=== PATIENT | female | born 1980 | race Two or more races ===

== ENCOUNTER 2021-07-12 03:51 | Inpatient (IN) | payer MEDICAID, OTHER ==
[~2021-07-12] VITALS: Ht 167.6 cm; Wt 98.1 kg
[~2021-07-12 03:51] MED LIST: LEVO500T31 PO; TRAM50TA2
[2021-07-12 07:45] LABS: Basophils # (auto) 0.1 10 ^3/uL (0-0.2); Basophils % (auto) 0.4 % (0.0-2.0); Eosinophils # (auto) 0 10 ^3/uL (0-0.8); Eosinophils % (auto) 0.2 % (0.0-7.0); Hematocrit 37.1 % (36.0-46.0); Hemoglobin 12.2 g/dL (12.2-16.2); Lymphocytes # (auto) 1.1 10 ^3/uL (0.4-5.4); Lymphocytes % (auto) 8.8 % (10.0-50.0); Mean Corpuscular Hemoglobin 27.1 pg (28.0-32.0); Mean Corpuscular Hgb Conc. 32.9 g/dL (32.0-36.0); Mean Corpuscular Volume 82.5 fL (80.0-100.0); Monocytes # (auto) 0.6 10 ^3/uL (0-1.3); Neutrophils # (auto) 10.3 10 ^3/uL (1.6-8.6); Neutrophils % (auto) 85.6 % (37.0-80.0); Red Cell Distribution Width 14.5 % (11.8-14.3)
[2021-07-12 07:53] LABS: Urine Bacteria FEW /hpf (None Seen); Urine Blood Negative /uL (Negative); Urine Specific Gravity 1.006 (1.001-1.035); Urine WBC 1 /hpf (0 - 5)
[2021-07-12 08:07] LABS: Albumin 3.8 g/dL (3.4-5.0); Calcium 9.1 mg/dL (8.5-10.1); Potassium 4.3 mmol/L (3.5-5.1)
[2021-07-12 08:17] LABS: BUN/Creatinine Ratio 15.8; Bilirubin, Total 0.9 mg/dL (0.2-1.0); Total Protein 7.4 g/dL (6.4-8.2)
[2021-07-12] MEDS ORDERED: cefTRIAXone 1GM/50ML D5W 50 ML IV ONE (08:45)
[2021-07-12] MEDS ORDERED: SODIUM CHLORIDE 0.9% 1,000 ML IV ONE ×2 (08:45)
[2021-07-12] MEDS ORDERED: IOHEXOL 300 MG/ML 100ML BOTTLE IJ ONE (08:47)
[2021-07-12] MEDS: SODIUM CHLORIDE 0.9% 1,000 ML IV SCH ×3 (10:22→23:50)
[2021-07-12] MEDS ORDERED: PROMETHAZINE HCL 25 MG/ML 1ML IV PRN (10:30)
[2021-07-12] MEDS ORDERED: MORPHINE SULFATE INJECTION 2 MG/ML SYRG IV PRN (10:30)
[2021-07-12] MEDS ORDERED: NITROGLYCERIN 0.4 MG SL TAB SL PRN (10:30)
[2021-07-12] MEDS ORDERED: ACETAMINOPHEN 500 MG TAB PO PRN (10:30)
[2021-07-12] MEDS ORDERED: HYDROcodone-ACET 5/325MG TAB PO PRN (10:30)
[2021-07-12 13:00] VITALS: BP 123/86
[2021-07-12] MEDS: PIPERACILLIN-TAZOB 3.375GM 100 ML IV SCH ×2 (13:59→22:12)
[2021-07-12] MEDS ORDERED: METR500T14 PO (14:37)
[2021-07-12] MEDS ORDERED: OMEP20TA PO (14:37)
[2021-07-12] MEDS ORDERED: CLAR1TAB21 PO (14:37)
[2021-07-12 16:43] LABS: Partial Thromboplastin Time 26.2 sec (23.6-33.0)
[2021-07-12 17:00] VITALS: BP 110/71
[2021-07-12 22:00] VITALS: BP 98/54
[2021-07-13 05:00] VITALS: BP 98/49
[2021-07-13] MEDS: SODIUM CHLORIDE 0.9% 1,000 ML IV SCH ×3 (05:43→15:21)
[2021-07-13] MEDS: PIPERACILLIN-TAZOB 3.375GM 100 ML IV SCH ×3 (06:40→22:39)
[2021-07-13 06:44] LABS: Amylase 60 U/L (25-115); Lipase 169 U/L (73-393)
[2021-07-13 06:47] LABS: Potassium 4.3 mmol/L (3.5-5.1)
[2021-07-13 06:48] LABS: INR 0.99 (0.9-1.15); Partial Thromboplastin Time 27.2 sec (23.6-33.0)
[2021-07-13 07:00] LABS: Albumin 3.3 g/dL (3.4-5.0); BUN/Creatinine Ratio 12.3; Bilirubin, Total 0.8 mg/dL (0.2-1.0); Calcium 8.4 mg/dL (8.5-10.1); Total Protein 6.2 g/dL (6.4-8.2)
[2021-07-13 09:00] VITALS: BP 105/54
[2021-07-13 13:00] VITALS: BP 113/63
[2021-07-13] MEDS: FAMOTIDINE 20 MG TAB PO SCH (14:21)
[2021-07-13 16:47] VITALS: BP 104/75
[2021-07-13 22:00] VITALS: BP 99/68
[2021-07-14] MEDS: PIPERACILLIN-TAZOB 3.375GM 100 ML IV SCH ×3 (05:28→22:33)
[2021-07-14] MEDS: SODIUM CHLORIDE 0.9% 1,000 ML IV SCH ×2 (05:28→18:47)
[2021-07-14 05:30] VITALS: BP 102/60
[2021-07-14 06:36] LABS: Albumin 3.4 g/dL (3.4-5.0)
[2021-07-14 06:40] LABS: Bilirubin, Direct 0.2 mg/dL (0-0.2); Bilirubin, Total 0.9 mg/dL (0.2-1.0); Total Protein 6.3 g/dL (6.4-8.2)
[2021-07-14 08:00] VITALS: BP 115/80
[2021-07-14 08:15] VITALS: BP 128/71
[2021-07-14] MEDS: FAMOTIDINE 20 MG TAB PO SCH (09:58)
[2021-07-14 13:00] VITALS: BP 119/74
[2021-07-14 17:00] VITALS: BP 102/59
[2021-07-14 22:00] VITALS: BP 107/57
[2021-07-15 05:00] VITALS: BP 115/64
[2021-07-15 05:01] LABS: Basophils # (auto) 0.1 10 ^3/uL (0-0.2); Basophils % (auto) 0.9 % (0.0-2.0); Eosinophils # (auto) 0.3 10 ^3/uL (0-0.8); Eosinophils % (auto) 3.1 % (0.0-7.0); Hemoglobin 11.6 g/dL (12.2-16.2); Lymphocytes # (auto) 2.1 10 ^3/uL (0.4-5.4); Mean Corpuscular Hemoglobin 27.3 pg (28.0-32.0); Mean Corpuscular Hgb Conc. 33.2 g/dL (32.0-36.0); Mean Corpuscular Volume 82.3 fL (80.0-100.0); Monocytes # (auto) 0.6 10 ^3/uL (0-1.3); Monocytes % (auto) 6.9 % (0.0-12.0); Neutrophils % (auto) 66.1 % (37.0-80.0); Nucleated Red Blood Cells % 0.1 %; Red Blood Cells 4.25 10^6/uL (4.0-5.20); Red Cell Distribution Width 14.2 % (11.8-14.3)
[2021-07-15 05:14] LABS: INR 1.04 (0.9-1.15); Partial Thromboplastin Time 27.3 sec (23.6-33.0)
[2021-07-15 05:16] LABS: Albumin 3.2 g/dL (3.4-5.0); BUN/Creatinine Ratio 9.5; Calcium 8.8 mg/dL (8.5-10.1); Potassium 4.3 mmol/L (3.5-5.1)
[2021-07-15 05:25] LABS: Bilirubin, Total 0.8 mg/dL (0.2-1.0); Total Protein 6.2 g/dL (6.4-8.2)
[2021-07-15] MEDS: PIPERACILLIN-TAZOB 3.375GM 100 ML IV SCH ×2 (06:00→14:05)
[2021-07-15] MEDS ORDERED: ceFAZolin 1GM/50ML 100 ML IV ONE (07:00)
[2021-07-15] MEDS ORDERED: LIDOCAINE W/ EPINEPHRINE 1% 20ML VIAL ONE (07:19)
[2021-07-15] MEDS ORDERED: BUPIVACAINE W/ EPINEPH 0.25% INJ 50ML MDV ONE (07:19)
[2021-07-15] MEDS ORDERED: ROCURONIUM 10MG/ML 10ML VIAL IV ONE (07:55)
[2021-07-15] MEDS ORDERED: fentaNYL CITRATE 5 ML ONE (07:55)
[2021-07-15] MEDS ORDERED: MIDAZOLAM HCL 2MG/2ML 2ml VIAL (1mg/ml) ONE (07:55)
[2021-07-15] MEDS ORDERED: ONDANSETRON HCL 4 MG/2 ML VIAL ONE (08:12)
[2021-07-15] MEDS ORDERED: PROPOFOL 10 MG/ML 20 ML IV ONE (08:12)
[2021-07-15] MEDS ORDERED: LIDOCAINE 2% (LOCAL ANESTH.) PF 5ml SDV ONE (08:12)
[2021-07-15 08:15] VITALS: BP 113/71
[2021-07-15] MEDS ORDERED: ONDANSETRON HCL 4 MG/2 ML VIAL IV PRN (09:00)
[2021-07-15] MEDS ORDERED: HYDROmorphone HCL 2 MG/ML VL IV PRN ×2 (09:00)
[2021-07-15] MEDS ORDERED: GLYCOPYRROLATE 0.2 MG/ML 1ML VIAL ONE (09:15)
[2021-07-15] MEDS ORDERED: NEOSTIGMINE 1 MG/ML INJ (10mg/10ML VIAL) ONE (09:15)
[2021-07-15] MEDS ORDERED: NALOXONE HCL 0.4 MG/ML VIAL ONE (09:25)
[2021-07-15 10:30] VITALS: BP 113/71
[2021-07-15] MEDS: SODIUM CHLORIDE 0.9% 1,000 ML IV SCH (10:59)
[2021-07-15] MEDS: FAMOTIDINE 20 MG TAB PO SCH (11:01)
[2021-07-15] MEDS: MORPHINE SULFATE INJECTION 2 MG/ML SYRG IV PRN ×2 (11:39→20:49)
[2021-07-15 13:00] VITALS: BP 98/67
[2021-07-15] MEDS: HYDROcodone-ACET 5/325MG TAB PO PRN (15:37)
[2021-07-15 17:00] VITALS: BP 104/75
[2021-07-15 20:00] VITALS: BP 110/70
[2021-07-15] MEDS ORDERED: SENNA 8.6 MG TAB PO SCH (22:00)
[2021-07-16] MEDS: HYDROcodone-ACET 5/325MG TAB PO PRN ×3 (05:05→17:17)
[2021-07-16 05:17] VITALS: BP 108/70
[2021-07-16 08:00] VITALS: BP 99/57
[2021-07-16 09:00] VITALS: BP 99/57
[2021-07-16] MEDS: FAMOTIDINE 20 MG TAB PO SCH (09:20)
[2021-07-16 12:15] VITALS: BP 105/80
[2021-07-16] MEDS: MORPHINE SULFATE INJECTION 2 MG/ML SYRG IV PRN (12:55)
[2021-07-16 13:25] VITALS: BP 103/67
[2021-07-16] MEDS ORDERED: OMEP20TA PO (15:23)
[2021-07-16] MEDS ORDERED: IBUP600T28 PO (15:23)
== END 2021-07-16 17:55 | disposition home or self-care (01) | DRG 263 ==
LOC: ER 04:07 → OVERFLOW 10:22 → WEST WING 11:29
PROVIDERS: ADMIT Hospitalist; ATTEND Hospitalist
PROC: 0FT44ZZ Resection of Gallbladder, Percutaneous Endoscopic Approach (ICD-10-PCS; principal; 2021-07-15 08:07)
DX: K80.10 Calculus of gallbladder with chronic cholecystitis without obstruction (principal); K85.90 Acute pancreatitis without necrosis or infection, unspecified; K29.70 Gastritis, unspecified, without bleeding; Z20.822 Contact with and (suspected) exposure to COVID-19; Z91.14 Patient's other noncompliance with medication regimen; Z83.3 Family history of diabetes mellitus
CPT/HCPCS: 36415; 74177; 76705; 80053; 80061; 80076; 81001; 81025; 82150; 83605; 83690; 85025; 85610; 85730; 86850; 86900; 86901; 87040; 87426; 93005; 96365; 99291; G0378; J0690; J0696; J2001; J2250; J2405; J2543; J2704